=== PATIENT | female | born 1940 | race Caucasian/White ===

== ENCOUNTER 2018-06-22 18:08 | Observation (INO) | payer MEDICARE ==
[~2018-06-22] VITALS: Ht 160 cm; Wt 85.0 kg
[2018-06-22] MEDS ORDERED: FAMOTIDINE 20 MG/2 ML VIAL IV STA (18:24)
[2018-06-22] MEDS ORDERED: SODIUM CHLORIDE 0.9% 500ML 500 ML IV STA (18:24)
[2018-06-22] MEDS ORDERED: ONDANSETRON HCL INJ 2 MG/ML VIAL IV PRN ×2 (18:30→20:45)
[2018-06-22] MEDS ORDERED: MORPHINE SULFATE 2 MG/ML SYR IV PRN (18:30)
[2018-06-22 18:52] LABS: BASOPHILS % 0.7 % (0.0-1.0); EOSINOPHILS # (AUTO) 0.2 (0.0-0.4); EOSINOPHILS % 3.2 % (0.0-6.0); HEMATOCRIT 38.4 % (34.2-44.1); HEMOGLOBIN 12.7 g/dL (12.0-16.0); LYMPHOCYTES # (AUTO) 1.8 (1.0-3.2); LYMPHOCYTES % 29.6 % (18.0-39.1); MEAN CORPUSCULAR HEMOGLOBIN 31.2 pg (28-32); MEAN CORPUSCULAR HGB CONC 33.1 g/dL (31-35); MEAN CORPUSCULAR VOLUME 94.3 fL (81-99); MONOCYTES # (AUTO) 0.5 (0.2-0.8); MONOCYTES % 8.6 % (4.4-11.3); NEUTROPHILS # (AUTO) 3.4 (2.1-6.9); NEUTROPHILS % 57.6 % (38.7-80.0); PLATELET COUNT 183 x10e3/uL (140-360); RED BLOOD COUNT 4.07 x10e6/uL (3.6-5.1); RED CELL DISTRIBUTION WIDTH 13.7 % (11.7-14.4)
[2018-06-22 19:11] LABS: ALANINE AMINOTRANSFERASE 17 IU/L (0-55); ALBUMIN 3.9 g/dL (3.5-5.0); ALBUMIN/GLOBULIN RATIO 1.3 (0.8-2.0); ALKALINE PHOSPHATASE 86 IU/L (40-150); AMYLASE 46 U/L (25-125); ANION GAP 15.7 mmol/L (8-16); BLOOD UREA NITROGEN 14 mg/dL (7-26); BUN/CREATININE RATIO 17 (6-25); CALCIUM 9.2 mg/dL (8.4-10.2); CARBON DIOXIDE 27 mmol/L (22-29); CHLORIDE 102 mmol/L (98-107); CREATINE KINASE 84 IU/L (29-168); CREATININE, SERUM 0.81 mg/dL (0.57-1.11); EST GLOMERULAR FILTRATION RATE > 60 ML/MIN (60-); GLUCOSE 127 mg/dL (74-118); LIPASE 52 U/L (8-78); MAGNESIUM 1.9 MG/DL (1.3-2.1); POTASSIUM 3.7 mmol/L (3.5-5.1); SODIUM 141 mmol/L (136-145)
--- NOTE | 2018-06-22 20:00 | Diagnostic Imaging Report ---
EXAMINATION: CHEST SINGLE (PORTABLE) INDICATION: \S\Chest pain, look for CHF, enlarge Mediastinum \S\[id number] \S\[id number] COMPARISON: None FINDINGS: AP view TUBES and LINES: None. LUNGS: Lungs are well inflated. Right upper lobe calcified granuloma. No lobar consolidations. Mild bilateral central pulmonary congestion. PLEURA: No pleural effusion or pneumothorax. HEART AND MEDIASTINUM: Borderline cardiac silhouette. Pulmonary arteries appear prominent and may relate to pulmonary hypertension. BONES AND SOFT TISSUES: No acute osseous lesion. Soft tissues are unremarkable. UPPER ABDOMEN: No free air under the diaphragm. IMPRESSION: Prominent cardiac silhouette with associated Central pulmonary vascular congestion and prominent pulmonary arteries. Signed by: Dr. Radha Campos M.D. on 06/22/2018 7:57 PM
--- NOTE | 2018-06-22 20:02 | Diagnostic Imaging Report ---
EXAM: Abdomen 1 Views INDICATION: \S\abd pain, look for SBO, constipation, ileus \[id number] \S\[id number] COMPARISON: Chest radiograph 06/22/2018 FINDINGS: Poor attenuation limits evaluation of the abdomen and pelvis. Mild of stool in the colon. No dilated loops of small bowel. No renal calculi. No abnormal soft tissue masses. Mild degenerative changes in the lumbar spine and pelvis. IMPRESSION: Suboptimal examination. Nonobstructive bowel gas pattern. Mild retained stool throughout the colon. Signed by: Dr. Radha Campos M.D. on 06/22/2018 7:58 PM
[2018-06-22 21:57] VITALS: BP 136/61
[2018-06-22] MEDS ORDERED: POTASSIUM CHLO20 ME1 PO (23:41)
[2018-06-22] MEDS ORDERED: ELIQUIS 5MG PO (23:41)
[2018-06-22] MEDS ORDERED: FUROSEMIDE40 MG PO (23:41)
[2018-06-22] MEDS ORDERED: HYDRALAZINE HCL10 MG PO (23:41)
[2018-06-22] MEDS ORDERED: ASPIRIN81 MG PO (23:41)
[2018-06-22] MEDS ORDERED: FLECAINIDE ACE100 MG PO (23:41)
[2018-06-22] MEDS ORDERED: LOSARTAN-HCTZ1 EAC1 PO (23:41)
[2018-06-22] MEDS ORDERED: AMLODIPINE BESYL5 MG PO (23:41)
[2018-06-22] MEDS ORDERED: PRESERVISION T1 EACH PO (23:41)
[2018-06-22] MEDS ORDERED: ATORVASTATIN CA20 MG PO (23:41)
[2018-06-22] MEDS ORDERED: METOPROLOL SUCC50 MG PO (23:41)
[2018-06-22 23:43] VITALS: BP 136/61
[2018-06-23] VITALS (7 sets, daily range): BP systolic 123–136; BP diastolic 59–61
[2018-06-23 03:27] LABS: CREATINE KINASE MB 1.3 ng/mL (0-5.0)
[2018-06-23 06:09] LABS: CHOL/HDL RATIO 2.6 (3.0-3.6)
[2018-06-23] MEDS ORDERED: PREOP PHACO EYE KIT ONE (09:05)
[2018-06-23] MEDS ORDERED: OR PHACO EYE KIT ONE (09:05)
--- NOTE | 2018-06-23 12:41 | Consultation ---
DATE OF CONSULTATION: June 23, 2018 CARDIOLOGY CONSULTATION REQUESTING PHYSICIAN: Dr. Melissa Mustafa REASON FOR CONSULTATION: Chest pain and atrial fibrillation. HISTORY OF PRESENT ILLNESS: This is a 77-year-old woman with history of atrial fibrillation, and hypertension who presented with complaints of abdominal discomfort. The patient reports she had been in her usual state of health until she had sick contacts in her grandchildren. She then developed nausea and decreased appetite. She was visiting her son yesterday when she noted she began to feel strange in her chest. She denied any palpitations or pain. There was no shortness of breath, edema, orthopnea, PND or lightheadedness. Because of her symptoms she was taken to the ER for further evaluation. REVIEW OF SYSTEMS: Negative except as per HPI. PAST MEDICAL HISTORY 1. Atrial fibrillation status post cardioversion times 2. 2. Hypertension. PAST SURGICAL HISTORY: I and D of the right leg secondary to an infection. ALLERGIES: NO KNOWN DRUG ALLERGIES. MEDICATIONS: Please see EMR. SOCIAL HISTORY: No tobacco or illicit drugs. She does endorse occasional alcohol use. FAMILY HISTORY: Pertinent for parents with congestive heart failure. PHYSICAL EXAMINATION VITAL SIGNS: Temperature 98.6 degrees, pulse 58, respiratory rate 18, blood pressure 131/60, oxygen saturation 95% on room air. GENERAL: Elderly woman, no acute distress. Well-developed, well-nourished. HEENT: Normocephalic, atraumatic. Pupils equal. No sclerae icterus. NECK: Supple. No thyromegaly or cervical lymphadenopathy. No carotid bruits. LUNGS: Clear to auscultation bilaterally. No wheezes or crackles. CARDIOVASCULAR: Normal rate, regular rhythm. No murmur. Normal S1, S2. ABDOMEN: Soft, nontender. EXTREMITIES: No edema. NEURO: Nonfocal exam. WBC 5.4, hemoglobin 12.7, hematocrit 38.4, platelets 183. Sodium 141, potassium 3.7, chloride 102, CO2 27, BUN 14, creatinine 0.81. Troponin 0.004. BNP 84. Triglycerides 134, cholesterol 169, LDL 76, HDL 66. EKG: Sinus rhythm with nonspecific ST and T wave abnormalities. IMPRESSION 1. Chest discomfort. 2. History of atrial fibrillation status post recent cardioversion. 3. Hypertension. RECOMMENDATIONS: Patient has ruled out for myocardial infarction with serial cardiac biomarkers. Obtain echocardiogram. Patient is currently asymptomatic. As her chest pain was atypical, if echocardiogram is unremarkable and patient is scheduled to see her outpatient tobacco prizer next week, she may be discharged home to complete ischemic evaluation with her primary tobacco prizer. Thank you for this consult. We will continue to follow. Job#: [id number] SAM
[2018-06-23] MEDS ORDERED: APIXABAN 5 MG TABLET PO SCH ×2 (14:45→17:00)
[2018-06-23] MEDS ORDERED: FLECAINIDE ACETATE 100 MG TAB PO SCH ×2 (14:45→17:00)
[2018-06-23] MEDS ORDERED: HYDRALAZINE HCL 10 MG TAB PO SCH (15:00)
[2018-06-23] MEDS ORDERED: POTASSIUM CHLORIDE 20 MEQ TAB CR PO SCH (15:00)
[2018-06-23] MEDS ORDERED: ATORVASTATIN 20 MG TAB PO SCH (21:00)
[2018-06-23] MEDS ORDERED: ATORVASTATIN 40 MG TAB PO SCH (21:00)
[2018-06-24] MEDS ORDERED: ASPIRIN 81 MG CHEW TAB PO SCH (09:00)
[2018-06-24] MEDS ORDERED: FUROSEMIDE 40 MG TAB PO SCH (09:00)
[2018-06-24] MEDS ORDERED: OCUVITE PRESERVISION TABLET PO SCH (09:00)
[2018-06-24] MEDS ORDERED: METOPROLOL SUCCINATE 50 MG TAB XL PO SCH (09:00)
[2018-06-24] MEDS ORDERED: AMLODIPINE BESYLATE 5 MG TAB PO SCH (09:00)
== END 2018-06-23 18:41 | disposition home or self-care (01) ==
LOC: ER 18:08 → ERHOLD 20:41 → IMCU 21:40
PROVIDERS: ADMIT Internal Medicine; ATTEND Internal Medicine
DX: R07.89 Other chest pain (principal); R11.0 Nausea; I48.0 Paroxysmal atrial fibrillation; E78.5 Hyperlipidemia, unspecified; I10 Essential (primary) hypertension; Z79.01 Long term (current) use of anticoagulants
CPT/HCPCS: 36415; 71045; 74018; 80053; 80061; 82150; 82550 ×2; 82553 ×2; 83690; 83735; 83880; 84484 ×2; 85025; 93005; 93306; 99284; G0378 ×2; J7040